=== PATIENT | male | born 1960 | race Caucasian/White ===

== ENCOUNTER → 2022-03-23 08:47 | Outpatient (CLI) | payer OTHER, SELFPAY ==
--- NOTE | ~2022-03-23 | MR_ITS ---
MRI of the left shoulder Technique: Axial T2 fat-sat images, coronal proton density fat-sat, T2 fat-sat, and T1-weighted image s, and sagittal proton density fat-sat and T2 fat-sat images were acquired. Clinical History: Chronic pain Findings: There is moderate to advanced degenerative changes AC joint, though only minimal subacromia l spurring is present. Cortical clavicular, coracoacromial, and coracohumeral joints are intact. There is mild tendinosis of the distal supraspinatus tendon. No partial or full-thickness tear of the supraspinous or infraspinatus tendon is identified. Subscapularis tendon is intact, with mild tendin osis. Tendon of the long head of the biceps is intact. There are probably subtle tear at the undersurface of the superior labrum. No anterior or posterior e xtension identified. No degenerative change or effusion of the glenohumeral joint. Inferior glenohumeral ligament is intac t. No muscle atrophy or edema identified. IMPRESSION: Probable small undersurface tear of the superior labrum. Mild rotator cuff tendinosis, as detailed above. No partial or full-thickness rotator cuff tear seen. Moderate to advanced AC degenerative change. Reviewed, dictated and finalized at location [] CART ATTENDANT IMPRESSION: Probable small undersurface tear of the superior labrum. Mild rotator cuff tendinosis, as detailed above. No partial or full-thickness r otator cuff tear seen. Moderate to advanced AC degenerative change.
== END ==
PROVIDERS: PCP Family Medicine; Visit Provider Orthopaedic Surgery
DX: M25.512 Pain in left shoulder (principal); R93.6 Abnormal findings on diagnostic imaging of limbs
CPT/HCPCS: 73221